=== PATIENT | male | born 1965 | race Caucasian/White ===

== ENCOUNTER → 2016-08-31 | Outpatient (CLI) | payer BC ==
[2016-09-01 14:18] LABS: PSA TOTAL 3.3 ng/mL (0.0-4.0)
== END ==
LOC: M SMT 08:06
PROVIDERS: ATTEND Urology
DX: R97.20 Elevated prostate specific antigen [PSA] (principal)

== ENCOUNTER → 2017-02-28 | Outpatient (CLI) | payer BC | LOC: M SMT 08:03 | PROVIDERS: ATTEND Urology | DX: R97.20 Elevated prostate specific antigen [PSA] (principal) ==

== ENCOUNTER 2017-03-28 05:54 | Day surgery (SDC) | payer BC ==
[~2017-03-28] VITALS: Ht 180.3 cm; Wt 90.7 kg
[~2017-03-28 05:54] MED LIST: BUPR150T3; FLUTISP; GLUC1CAP10 PO; LISI20TA PO; ONETAB32 PO; PRAV40TA2; RANI150C
[2017-03-28] MEDS ORDERED: LIDOCAINE 1% MDV 20ML VIAL SQ PRN (06:00)
[2017-03-28] MEDS ORDERED: LR 1,000 ML IV ONE (06:00)
[2017-03-28] MEDS ORDERED: MIDAZOLAM INJ 2 MG/2 ML VIAL (J2250) As Ordered ONE (07:03)
[2017-03-28] MEDS ORDERED: fentaNYL 100 MCG/2 ML INJECTION (J3010) As Ordered ONE (07:03)
[2017-03-28] MEDS ORDERED: LIDOCAINE 1% SDV INJ 30 ML VIAL As Ordered ONE (07:14)
[2017-03-28] MEDS ORDERED: BUPIVACAINE HCL 0.25% 30 ML VIAL As Ordered ONE (07:14)
[2017-03-28] MEDS ORDERED: LIDOCAINE 2% INJ 100 MG/5 ML SDV (FOR ANES.) As Ordered ONE (07:48)
[2017-03-28] MEDS ORDERED: dexameTHASONE 4 MG/ML 1ML VIAL (J1100) As Ordered ONE (07:48)
[2017-03-28] MEDS ORDERED: KETOROLAC 60 MG/2 ML VIAL (J1885) As Ordered ONE (07:48)
[2017-03-28] MEDS ORDERED: ROCURONIUM BROMIDE 50 MG/5 ML VIAL As Ordered ONE (07:48)
[2017-03-28] MEDS ORDERED: ONDANSETRON 4MG/2ML VIAL (J2405) As Ordered ONE (07:48)
[2017-03-28] MEDS ORDERED: PROPOFOL 200 MG/20 ML VIAL As Ordered ONE (07:48)
[2017-03-28] MEDS ORDERED: HYDROmorphone HCL 2 MG/ML 1ML VIAL (J1170) As Ordered ONE (08:04)
[2017-03-28] MEDS ORDERED: fentaNYL 100 MCG/2 ML INJECTION (J3010) IV PRN (09:45)
[2017-03-28] MEDS ORDERED: METOCLOPRAMIDE INJ 10MG/2ML VIAL (J2765) IV PRN (09:45)
[2017-03-28] MEDS ORDERED: NORCO, ANEXSIA 5/325MG TABLET (HYDROcodone/ACETAMINOPHEN) PO PRN (09:45)
[2017-03-28] MEDS ORDERED: ONDANSETRON 4MG/2ML VIAL (J2405) IV PRN (09:45)
[2017-03-28] MEDS ORDERED: MEPERIDINE INJ 25 MG/ML VIAL (J2175) IV PRN (09:45)
[2017-03-28] MEDS ORDERED: LR 1,000 ML IV SCH (09:45)
[2017-03-28] MEDS ORDERED: PERCOCET 5MG/325MG TAB PO PRN (09:45)
[2017-03-28] MEDS ORDERED: IBUPROFEN 600 MG TAB PO PRN (09:45)
[2017-03-28] MEDS ORDERED: ACETAMINOPHEN TAB 650MG DOSE (2X325MG) PO PRN (09:45)
--- NOTE | 2017-03-28 10:14 | RO ---
DATE OF PROCEDURE: 03/28/2017 PREOPERATIVE DIAGNOSIS: Right inguinal hernia. POSTOPERATIVE DIAGNOSIS: Indirect right inguinal hernia. PROCEDURE PERFORMED: Right inguinal herniorrhaphy with ultra Pro mesh. SURGEON: Dr. Domenic Lubin GEOPHYSICIST: ANESTHESIA: General. INDICATIONS FOR PROCEDURE: The patient is a 52-year-old man who has noticed a moderate reducible incomplete right inguinal hernia. He is now for repair. OPERATIVE PROCEDURE: The patient was placed supine on the operating table and was placed under general endotracheal anesthesia. The patient's lower abdomen, groins and genitalia were prepped and draped in a sterile fashion. An approximately 10 cm oblique right lower quadrant incision was placed over the area of the inguinal canal. The incision was deepened through the subcutaneous tissues. Hemostasis was ensured with the cautery. The external oblique was exposed and then opened in the direction of its fibers into the external ring. The spermatic cord was quite dilated. The cord was skeletonized and he was found to have a moderately large protrusion of preperitoneal fat at the lateral aspect of the internal ring. There was an indirect inguinal hernia sac which contained a large amount of fibrofatty tissue in its wall as well. The hernia sac was excised and the neck was closed with a running locking suture of #0 Vicryl. The preperitoneal fat was transected with care to ensure hemostasis using the cautery. This tissue was all sent together as hernia sac plus preperitoneal fat. The internal ring was somewhat dilated and two #0 Ethibond sutures were placed at the medial aspect to narrow the internal ring somewhat. A 6 x 11 cm piece of ultra Pro mesh was selected. This was trimmed to fit the inguinal floor. I would note that the there was a nerve identified at the medial edge of the internal ring extending medially and this was elevated and preserved. The mesh was placed over the inguinal floor. It was sutured at the pubic tubercle with a #3-0 Prolene which was carried along the edge of the mesh suturing this to the shelving edge of the inguinal ligament. Medially, the mesh was tacked down to the underlying tissues with interrupted simple sutures of #3-0 Vicryl. The tails of the mesh were overlapped lateral to the cord and sutured together. This gave a nice repair of the inguinal floor. Approximately 10 mL of 0.25% Marcaine were infiltrated into the inguinal floor at about the spermatic cord. The external oblique was closed with a running suture of #0 Vicryl. The subcutaneous tissues were closed with chromic and the skin edges were approximated with a running subcuticular #4-0 Vicryl. Approximately 10 mL of 0.25% Marcaine were infiltrated along the skin edges. Steri-Strips were applied followed by a light dressing. The patient tolerated the procedure well without apparent complication. He was awakened in the operating room, extubated and moved to the recovery room in stable condition.
[2017-03-28 11:05] VITALS: BP 112/68
--- NOTE | 2017-03-28 11:27 | ECGEPIP ---
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 No prior ECG available for comparison at the time of interpretation. Electronically Signed On 03-28-2017 11:26:56 EST by Pete Ordaz
== END 2017-03-28 12:10 | disposition home or self-care (01) ==
LOC: M SDC 05:54
PROVIDERS: ATTEND Surgery
DX: K40.90 Unilateral inguinal hernia, without obstruction or gangrene, not specified as recurrent (principal); I10 Essential (primary) hypertension; E78.00 Pure hypercholesterolemia, unspecified; F41.9 Anxiety disorder, unspecified; F32.9 Major depressive disorder, single episode, unspecified; K21.9 Gastro-esophageal reflux disease without esophagitis; R97.20 Elevated prostate specific antigen [PSA]; Z79.899 Other long term (current) drug therapy
CPT/HCPCS: 49505; 88302; 93005; C1781; J1100; J1170; J1885; J2250; J2405; J3010

== ENCOUNTER → 2017-09-04 | Outpatient (CLI) | payer BC ==
[2017-09-04 20:15] LABS: PROSTATIC SPECIFIC AG MONITOR 4.18 NG/ML (< 4.0)
== END ==
LOC: M WUC 17:52
DX: R97.20 Elevated prostate specific antigen [PSA] (principal)

== ENCOUNTER 2018-01-03 10:48 | Day surgery (SDC) | payer BC ==
[2018-01-03] MEDS: NS 1,000 ML IV (11:00)
== END 2018-01-03 12:34 | disposition home or self-care (01) ==
LOC: M OPP 12:34
DX: Z12.11 Encounter for screening for malignant neoplasm of colon (principal); Z80.0 Family history of malignant neoplasm of digestive organs; Z86.010 Personal history of colon polyps; K64.0 First degree hemorrhoids; I10 Essential (primary) hypertension; E78.5 Hyperlipidemia, unspecified; K21.9 Gastro-esophageal reflux disease without esophagitis; R12 Heartburn; F32.9 Major depressive disorder, single episode, unspecified; R06.83 Snoring; N40.1 Benign prostatic hyperplasia with lower urinary tract symptoms; Z79.899 Other long term (current) drug therapy
CPT/HCPCS: G0105

== ENCOUNTER → 2018-03-05 | Outpatient (CLI) | payer BC ==
[2018-03-05 13:24] LABS: PROSTATIC SPECIFIC AG MONITOR 3.7 NG/ML (< 4.0)
== END ==
LOC: M SMT 10:25
DX: R97.20 Elevated prostate specific antigen [PSA] (principal)
CPT/HCPCS: 84153

== ENCOUNTER → 2018-03-28 | Outpatient (REF) | payer BC | LOC: M LAB REF 09:07 | DX: L72.0 Epidermal cyst (principal); L72.3 Sebaceous cyst | CPT/HCPCS: 88304 ==

== ENCOUNTER 2018-05-30 22:25 | Emergency (ER) | payer BC ==
[~2018-05-30] VITALS: Ht 180.3 cm; Wt 90.9 kg
[2018-05-30] MEDS ORDERED: MORPHINE 4 MG/ML 1ML VIAL/SYRINGE (J2270) IM ONE (23:15)
[2018-05-30] MEDS ORDERED: PERC5TAB12 PO (23:49)
[2018-05-31] MEDS ORDERED: OXYCODONE/APAP 5MG/325MG(BULK FOR ED) 1 TABLET PO ONE
[2018-05-31 00:32] VITALS: BP 145/84
--- NOTE | 2018-05-31 07:38 | REP ---
Right knee five views: The patella is high-riding and there is a calcification inferior to the patella anterior to the humeral tuberosities of uncertain significance, possibly an a avulsion from the lower pole of the patella, suggestive of patellar tendon tear and retraction, possibly an old injury. No other fracture is identified. There is no evidence of effusion or hemarthrosis. Mineralization is normal. Joint spaces are unremarkable. Impression: Question patellar tendon tear and avulsion of the inferior pole of the patella, possibly an old injury. Electronically Signed by Floyd Rojo MD 05/31/2018 07:30 A
== END 2018-05-31 00:35 | disposition home or self-care (01) ==
LOC: M ED 22:25
DX: S83.004A Unspecified dislocation of right patella, initial encounter (principal); S86.811A Strain of other muscle(s) and tendon(s) at lower leg level, right leg, initial encounter; X50.1XXA Overexertion from prolonged static or awkward postures, initial encounter; Y92.89 Other specified places as the place of occurrence of the external cause; Y93.67 Activity, basketball; I10 Essential (primary) hypertension; E78.00 Pure hypercholesterolemia, unspecified; Z87.828 Personal history of other (healed) physical injury and trauma; Z79.899 Other long term (current) drug therapy
CPT/HCPCS: 73564; 96372; 99284; J2270

== ENCOUNTER → 2018-05-31 | Outpatient (CLI) | payer BC ==
[~2018-05-31] MED LIST changes: +PERC5TAB12 PO
[2018-05-31 12:46] LABS: BLOOD UREA NITROGEN 17 MG/DL (7-18); CALCIUM LEVEL 9.1 MG/DL (8.5-10.1); CARBON DIOXIDE LEVEL 26 MEQ/L (21-32); CHLORIDE LEVEL 105 MEQ/L (98-107); CREATININE FOR GFR 0.99 MG/DL (0.70-1.30); GLOMERULAR FILTRATION RATE > 60.0 (>56); GLUCOSE, FASTING 88 MG/DL (70-100); POTASSIUM SERUM 4.1 MEQ/L (3.5-5.1); SODIUM LEVEL 140 MEQ/L (136-145)
--- NOTE | 2018-05-31 14:04 | ECGEPIP ---
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
== END ==
LOC: M LAB 11:40
PROVIDERS: ATTEND Orthopaedic Surgery
DX: Z01.812 Encounter for preprocedural laboratory examination (principal); I10 Essential (primary) hypertension; Z79.899 Other long term (current) drug therapy

== ENCOUNTER → 2018-09-11 | Outpatient (CLI) | payer BC | LOC: M WUC 17:20 | PROVIDERS: ATTEND Nurse Practitioner Women's Health | DX: R97.20 Elevated prostate specific antigen [PSA] (principal) ==

== ENCOUNTER → 2019-03-16 | Outpatient (CLI) | payer BC ==
[~2019-03-16] MED LIST changes: -LISI20TA PO; +LISI20TA19 PO
== END ==
LOC: M WUC 16:05
PROVIDERS: ATTEND Nurse Practitioner Women's Health
DX: R97.20 Elevated prostate specific antigen [PSA] (principal)

== ENCOUNTER → 2019-09-19 | Outpatient (CLI) | payer BC | LOC: M WUC 14:39 | PROVIDERS: ATTEND Nurse Practitioner Women's Health | DX: R97.20 Elevated prostate specific antigen [PSA] (principal) ==

== ENCOUNTER → 2020-03-13 | Outpatient (CLI) | payer BC ==
[~2020-03-13] MED LIST changes: -LISI20TA19 PO; +LISI20TA35 PO
== END ==
LOC: M LAB 12:09
PROVIDERS: ATTEND Nurse Practitioner Women's Health
DX: R97.20 Elevated prostate specific antigen [PSA] (principal)

== ENCOUNTER → 2020-09-15 | Outpatient (CLI) | payer BC ==
[~2020-09-15] MED LIST changes: +BUPR150T12; -BUPR150T3
== END ==
LOC: M WUC 08:42
PROVIDERS: ATTEND Nurse Practitioner Women's Health
DX: R97.20 Elevated prostate specific antigen [PSA] (principal)

== ENCOUNTER → 2021-03-16 | Outpatient (CLI) | payer BC | LOC: M WUC 08:38 | PROVIDERS: ATTEND Nurse Practitioner Women's Health | DX: R97.20 Elevated prostate specific antigen [PSA] (principal) ==

== ENCOUNTER → 2021-09-23 | Outpatient (REF) | payer BC | LOC: M LABWUC 15:22 → M LABDRWCV 15:22 | PROVIDERS: ATTEND Nurse Practitioner Women's Health | DX: R97.20 Elevated prostate specific antigen [PSA] (principal) ==

== ENCOUNTER → 2022-03-23 | Outpatient (CLI) | payer BC | LOC: M WUC 09:07 | PROVIDERS: ATTEND Nurse Practitioner Women's Health | DX: R97.20 Elevated prostate specific antigen [PSA] (principal) ==

== ENCOUNTER → 2022-04-27 | Outpatient (CLI) | payer BC ==
[~2022-04-27] MED LIST changes: +ATOR1TAB19 PO; +BETI0.5S OU; -BUPR150T12; +BUPR150T12 PO; +CETI-24 PO; +FAMO1TAB11 PO; +XALA0.007 AD
== END ==
LOC: M LABSMTC 11:12
PROVIDERS: ATTEND Anesthesiology
DX: Z01.818 Encounter for other preprocedural examination (principal); Z11.52 Encounter for screening for COVID-19

== ENCOUNTER 2022-05-02 07:27 | Day surgery (SDC) | payer BC ==
[~2022-05-02] VITALS: Ht 180.3 cm; Wt 98.5 kg
[~2022-05-02 07:27] MED LIST changes: +ceFAZolin SOD 2 GM in IV 1 EA IV ONE
[2022-05-02] MEDS ORDERED: LR 1,000 ML IV SCH ×2 (07:35→10:35)
[2022-05-02] MEDS ORDERED: BUPIVACAINE HCL 0.25% 10ML VIAL As Ordered ONE (09:16)
[2022-05-02] MEDS ORDERED: BUPIVACAINE/EPIN 0.25% 30ML VIAL As Ordered ONE (09:16)
[2022-05-02] MEDS ORDERED: BUPIVACAINE LIPOSOME/PF 1.3% 20ML VIAL (13.3MG/ML)(EXPAREL) As Ordered ONE (09:16)
[2022-05-02] MEDS ORDERED: LIDOCAINE 2% 100MG/5ML SDV (FOR ANES.) As Ordered ONE (09:38)
[2022-05-02] MEDS ORDERED: propofoL 200 MG/20 ML VIAL As Ordered ONE (09:38)
[2022-05-02] MEDS ORDERED: KETOROLAC 60MG 2ML VIAL As Ordered ONE (09:38)
[2022-05-02] MEDS ORDERED: ROCURONIUM BROMIDE 50MG/5ML VIAL As Ordered ONE (09:38)
[2022-05-02] MEDS ORDERED: fentaNYL 250 MCG/5 ML INJECTION As Ordered ONE (09:38)
[2022-05-02] MEDS ORDERED: SUGAMMADEX SODIUM 500 MG/5 ML VIAL (BRIDION) As Ordered ONE (09:38)
[2022-05-02] MEDS ORDERED: ONDANSETRON 4MG 2ML VIAL As Ordered ONE (09:38)
[2022-05-02] MEDS ORDERED: MIDAZOLAM INJ 2MG/2ML VIAL As Ordered ONE (09:38)
[2022-05-02] MEDS ORDERED: NS 1,000 ML IV SCH (10:25)
[2022-05-02] MEDS ORDERED: PERCOCET 5MG/325MG TAB PO PRN ×2 (10:30)
[2022-05-02] MEDS ORDERED: ONDANSETRON 4MG 2ML VIAL IV PRN (10:35)
[2022-05-02] MEDS ORDERED: oxyCODONE 5MG TAB PO PRN (10:35)
[2022-05-02] MEDS ORDERED: HYDROMORPHONE HCL 0.5 MG/ 0.5 ML SYRINGE IV PRN (10:35)
[2022-05-02] MEDS ORDERED: fentaNYL 100 MCG/2 ML INJECTION IV PRN (10:35)
[2022-05-02 12:15] VITALS: BP 144/82
== END 2022-05-02 12:21 | disposition home or self-care (01) ==
LOC: M SDC 07:27
PROVIDERS: ATTEND Surgery
DX: K42.9 Umbilical hernia without obstruction or gangrene (principal); I10 Essential (primary) hypertension; E78.00 Pure hypercholesterolemia, unspecified; R12 Heartburn; M54.2 Cervicalgia; F32.A Depression, unspecified; R97.20 Elevated prostate specific antigen [PSA]; Z87.891 Personal history of nicotine dependence; Z79.899 Other long term (current) drug therapy
CPT/HCPCS: 49591; 88302; C9290; J0690; J1100; J1885; J2250; J2405; J3010; S0020

== ENCOUNTER → 2022-09-21 | Outpatient (CLI) | payer BC ==
[~2022-09-21] MED LIST changes: -BETI0.5S OU; +FLUT50SP17; -FLUTISP; +TIMO5DRO4 OU; -ceFAZolin SOD 2 GM in IV 1 EA IV ONE
== END ==
LOC: M WUC 09:18
PROVIDERS: ATTEND Nurse Practitioner Women's Health
DX: R97.20 Elevated prostate specific antigen [PSA] (principal)

== ENCOUNTER → 2022-09-28 | Outpatient (REF) | payer BC ==
[2022-09-28 18:18] LABS: APPEARANCE, URINE HAZY (CLEAR); BACTERIA, URINE AUTO NEGATIVE (NEGATIVE); BILIRUBIN, URINE AUTO NEGATIVE (NEGATIVE); BLOOD, URINE BLOOD NEGATIVE (NEGATIVE); COLOR, URINE YELLOW (YELLOW); GLUCOSE, URINE (UA) AUTO NEGATIVE (NEGATIVE); KETONE, URINE AUTO NEGATIVE (NEGATIVE); LEUKOCYTE ESTERASE, URINE AUTO NEGATIVE (NEGATIVE); NITRITE, URINE AUTO NEGATIVE (NEGATIVE); PROTEIN, URINE AUTO NEGATIVE (NEGATIVE); RBC, URINE AUTO 0 /HPF (0-3); SPECIFIC GRAVITY URINE AUTO 1.017 (1.002-1.035); SQUAMOUS EPITHELIAL CELL UR AU 0 /HPF (0-6); UROBILINOGEN, URINE AUTO 0.2 mg/dL (0.0-2.0); WBC, URINE AUTO 0 /HPF (0-3)
== END ==
LOC: M SMT 17:48
PROVIDERS: ATTEND Physician Assistant
DX: R97.20 Elevated prostate specific antigen [PSA] (principal); Z87.898 Personal history of other specified conditions

== ENCOUNTER 2023-02-15 06:59 | Day surgery (SDC) | payer BC ==
[~2023-02-15] VITALS: Ht 180.3 cm; Wt 98.4 kg
[~2023-02-15 06:59] MED LIST changes: +NS 1,000 ML IV ONE; -XALA0.007 AD; +XALA0.007 OU
[2023-02-15] MEDS ORDERED: propofoL 200 MG/20 ML VIAL As Ordered ONE (07:22)
[2023-02-15] MEDS ORDERED: LIDOCAINE 2% 100MG/5ML SDV (FOR ANES.) As Ordered ONE (07:22)
[2023-02-15 08:25] VITALS: TEMP 97.1
[2023-02-15 08:49] VITALS: BP 127/76; O2SAT 98
== END 2023-02-15 09:03 | disposition home or self-care (01) ==
LOC: M OPP 06:59
PROVIDERS: ATTEND Surgery
DX: Z12.11 Encounter for screening for malignant neoplasm of colon (principal); D12.5 Benign neoplasm of sigmoid colon; D12.3 Benign neoplasm of transverse colon; K57.30 Diverticulosis of large intestine without perforation or abscess without bleeding; Z86.010 Personal history of colon polyps; I10 Essential (primary) hypertension; E78.00 Pure hypercholesterolemia, unspecified; Z79.899 Other long term (current) drug therapy; K21.9 Gastro-esophageal reflux disease without esophagitis; Z80.0 Family history of malignant neoplasm of digestive organs

== ENCOUNTER → 2023-03-01 | Outpatient (REF) | payer BC ==
[~2023-03-01] MED LIST changes: -NS 1,000 ML IV ONE
[2023-03-03 04:07] LABS: LDL DIRECT 114 mg/dL (0-99)
== END ==
LOC: M LAB REF 16:31
PROVIDERS: ATTEND Family Medicine
DX: E78.00 Pure hypercholesterolemia, unspecified (principal)

== ENCOUNTER → 2023-07-07 | Outpatient (REF) | payer BC ==
[~2023-07-07] MED LIST changes: -FLUT50SP17; +FLUTISP
== END ==
LOC: M LAB REF 11:31
PROVIDERS: ATTEND Family Medicine
DX: K76.0 Fatty (change of) liver, not elsewhere classified (principal)

== ENCOUNTER → 2023-07-11 | Outpatient (REF) | payer BC | LOC: M LAB REF 16:35 | PROVIDERS: ATTEND Family Medicine | DX: R74.8 Abnormal levels of other serum enzymes (principal) ==

== ENCOUNTER → 2023-09-25 | Outpatient (REF) | payer BC | LOC: M LABWUC 18:08 | PROVIDERS: ATTEND Physician Assistant | DX: R97.20 Elevated prostate specific antigen [PSA] (principal) ==

== ENCOUNTER 2024-03-09 18:54 | Emergency (ER) | payer BC ==
[~2024-03-09] VITALS: Ht 180.3 cm; Wt 99.0 kg
[2024-03-09] MEDS: MORPHINE 4 MG/ML 1ML VIAL IV ONE (19:55)
[2024-03-09 20:27] LABS: BASO % 0.3 % (0.0-1.0); EOS # 0.1 10^3/uL (0.0-0.5); EOS % 1.4 % (0.0-3.0); HEMATOCRIT 46.6 % (42.0-52.0); HEMOGLOBIN 15.6 g/dl (13.5-17.5); LYMPH # 1.7 10^3/uL (1.5-5.0); LYMPH % 25.7 % (24.0-44.0); MEAN CORPUSCULAR HEMOGLOBIN 30.5 pg (27.0-33.0); MEAN CORPUSCULAR HGB CONC 33.5 g/dl (32.0-36.5); MONO # 0.5 10^3/uL (0.0-0.8); MONO % 8.2 % (2.0-8.0); NEUTROPHILS # 4.1 10^3/uL (1.5-8.5); NEUTROPHILS % 64.1 % (36.0-66.0); PLATELET COUNT, AUTOMATED 265 10^3/uL (150-450); RED BLOOD COUNT 5.12 10^6/uL (4.30-6.10); WHITE BLOOD COUNT 6.5 10^3/uL (4.0-10.0)
[2024-03-09 20:40] LABS: INR 0.91; PARTIAL THROMBOPLASTIN TIME 23.4 SECONDS (24.8-34.2); PROTHROMBIN TIME 12.5 SECONDS (12.5-14.5)
[2024-03-09 21:00] LABS: LIPASE 45 U/L (12-53)
[2024-03-09 21:02] LABS: ALBUMIN 4.3 G/DL (3.2-5.2); ALKALINE PHOSPHATASE 58 U/L (40-129); ALT/SGPT 72 U/L (7.0-40); AST/SGOT 36 U/L (<34); BILIRUBIN,DIRECT < 0.1 MG/DL (<0.4); BILIRUBIN,TOTAL 0.3 MG/DL (0.3-1.2); BLOOD UREA NITROGEN 17 MG/DL (9-23); CALCIUM LEVEL 10.1 MG/DL (8.3-10.6); CARBON DIOXIDE LEVEL 24 MMOL/L (20-31); CHLORIDE LEVEL 106 MMOL/L (98-107); GLOMERULAR FILTRATION RATE > 60.0 (>49); GLUCOSE, FASTING 105 MG/DL (74-106); POTASSIUM SERUM 4.4 MMOL/L (3.5-5.1); SODIUM LEVEL 139 MMOL/L (136-145); TOTAL PROTEIN 7.2 G/DL (5.7-8.2)
[2024-03-09] MEDS ORDERED: ISOVUE-370 76% 100ML VIAL As Ordered ONE (21:23)
[2024-03-09 23:17] VITALS: BP 146/93; TEMP 98.3; O2SAT 95
[2024-03-12] MEDS ORDERED: BACI1TAB20 PO (10:41)
[2024-03-12] MEDS ORDERED: LEVO75TAB PO (10:41)
[2024-03-12] MEDS ORDERED: TAMS1CAP17 PO (11:33)
== END 2024-03-09 23:33 | disposition home or self-care (01) ==
LOC: M ED 18:54
DX: R33.9 Retention of urine, unspecified (principal); R31.9 Hematuria, unspecified; I10 Essential (primary) hypertension; E78.5 Hyperlipidemia, unspecified; K21.9 Gastro-esophageal reflux disease without esophagitis; N40.0 Benign prostatic hyperplasia without lower urinary tract symptoms; F32.A Depression, unspecified; Z87.891 Personal history of nicotine dependence; Z79.899 Other long term (current) drug therapy
CPT/HCPCS: 51700; 74177; 80048; 80076; 81000; 81015; 83690; 85025; 85610; 85730; 86850; 86900; 86901; 87086; 93041; 96374; 99285; Q9967

== ENCOUNTER 2024-03-10 11:37 | Emergency (ER) | payer BC ==
[~2024-03-10] VITALS: Ht 180.3 cm; Wt 98.3 kg
[2024-03-10 14:52] VITALS: BP 127/79; TEMP 97.9; O2SAT 95
[2024-03-12] MEDS ORDERED: BACI1TAB20 PO (10:41)
[2024-03-12] MEDS ORDERED: LEVO75TAB PO (10:41)
[2024-03-12] MEDS ORDERED: TAMS1CAP17 PO (11:33)
== END 2024-03-10 14:59 | disposition home or self-care (01) ==
LOC: M ED 11:37
DX: R33.9 Retention of urine, unspecified (principal); T83.091A Other mechanical complication of indwelling urethral catheter, initial encounter; I10 Essential (primary) hypertension; J45.909 Unspecified asthma, uncomplicated; K21.9 Gastro-esophageal reflux disease without esophagitis; N40.0 Benign prostatic hyperplasia without lower urinary tract symptoms; Z79.810 Long term (current) use of selective estrogen receptor modulators (SERMs); Z79.899 Other long term (current) drug therapy

== ENCOUNTER → 2024-04-05 | Outpatient (CLI) | payer BC ==
[~2024-04-05] MED LIST changes: +BACI1TAB20 PO; +LEVO75TAB PO; +TAMS1CAP17 PO
== END ==
LOC: M WUC 13:58
PROVIDERS: ATTEND Physician Assistant
DX: R97.20 Elevated prostate specific antigen [PSA] (principal)

== ENCOUNTER → 2024-04-27 | Outpatient (CLI) | payer BC ==
[2024-04-27 14:28] LABS: HEMOGLOBIN 15.4 g/dl (13.5-17.5); MEAN CORPUSCULAR HEMOGLOBIN 30.3 pg (27.0-33.0); MEAN CORPUSCULAR HGB CONC 33.5 g/dl (32.0-36.5); MEAN CORPUSCULAR VOLUME 90.6 fl (80.0-96.0); PLATELET COUNT, AUTOMATED 225 10^3/uL (150-450); RED BLOOD COUNT 5.08 10^6/uL (4.30-6.10); WHITE BLOOD COUNT 5.6 10^3/uL (4.0-10.0)
[2024-04-27 14:34] LABS: APPEARANCE, URINE HAZY (CLEAR); BACTERIA, URINE AUTO 1+ (NEGATIVE); BILIRUBIN, URINE AUTO NEGATIVE (NEGATIVE); BLOOD, URINE BLOOD 1+ (NEGATIVE); COLOR, URINE YELLOW (YELLOW); GLUCOSE, URINE (UA) AUTO NEGATIVE (NEGATIVE); KETONE, URINE AUTO NEGATIVE (NEGATIVE); LEUKOCYTE ESTERASE, URINE AUTO 1+ (NEGATIVE); MUCUS, URINE SMALL (NEGATIVE); NITRITE, URINE AUTO NEGATIVE (NEGATIVE); PROTEIN, URINE AUTO 1+ mg/dL (NEGATIVE); RBC, URINE AUTO 6 /HPF (0-3); SPECIFIC GRAVITY URINE AUTO 1.016 (1.002-1.035); SQUAMOUS EPITHELIAL CELL UR AU 0 /HPF (0-6); UROBILINOGEN, URINE AUTO 0.2 mg/dL (0.0-2.0); WBC, URINE AUTO 13 /HPF (0-3)
[2024-04-27 14:45] LABS: INR 0.89; PROTHROMBIN TIME 12.4 SECONDS (12.5-14.5)
[2024-04-27 14:55] LABS: ALBUMIN 4.1 G/DL (3.2-5.2); ALKALINE PHOSPHATASE 57 U/L (40-129); ALT/SGPT 90 U/L (7.0-40); AST/SGOT 46 U/L (<34); BILIRUBIN,TOTAL 0.4 MG/DL (0.3-1.2); BLOOD UREA NITROGEN 14 MG/DL (9-23); CALCIUM LEVEL 9.9 MG/DL (8.3-10.6); CARBON DIOXIDE LEVEL 28 MMOL/L (20-31); CHLORIDE LEVEL 102 MMOL/L (98-107); CREATININE FOR GFR 0.92 MG/DL (0.70-1.30); GLOMERULAR FILTRATION RATE > 60.0 (>49); GLUCOSE, FASTING 93 MG/DL (74-106); POTASSIUM SERUM 3.7 MMOL/L (3.5-5.1); SODIUM LEVEL 139 MMOL/L (136-145); TOTAL PROTEIN 7.1 G/DL (5.7-8.2)
== END ==
LOC: M RAD 13:44
PROVIDERS: ATTEND Urology
DX: Z01.818 Encounter for other preprocedural examination (principal); R31.0 Gross hematuria

== ENCOUNTER → 2024-05-06 | Day surgery (SDC) | payer BC ==
[~2024-05-06] VITALS: Ht 180.3 cm; Wt 97.0 kg
[~2024-05-06] MED LIST changes: +ACETAMINOPHEN 1000MG/100ML IV BAG As Ordered ONE; +LIDOCAINE 2% 100MG/5ML SDV (FOR ANES.) As Ordered ONE; +MACR100C43 PO; +MEPERIDINE 25 MG/ML 1ML VIAL IV PRN; +METOCLOPRAMIDE INJ 10MG/2ML VIAL IV PRN; +MIDAZOLAM INJ 2MG/2ML VIAL As Ordered ONE; +ONDANSETRON 4MG 2ML VIAL As Ordered ONE; +ONDANSETRON 4MG 2ML VIAL IV PRN; +OXYB5TAB14 PO; +PYRI1TAB5 PO; +ROCURONIUM BROMIDE 50MG/5ML VIAL As Ordered ONE; +SUGAMMADEX SODIUM 500 MG/5 ML VIAL (BRIDION) As Ordered ONE; +diphenhydrAMINE 50MG/ML VIAL IV PRN; +fentaNYL 100 MCG/2 ML INJECTION As Ordered ONE; +oxyCODONE 5MG TAB PO PRN; +propofoL 200 MG/20 ML VIAL As Ordered ONE
[2024-05-06] MEDS: ceFAZolin SOD 2 GM in IV 1 EA IV ONE (08:30)
[2024-05-06] MEDS: MITOMYCIN 40MG IN 40ML SWFI SYRINGE INTRAVESIC ONE (08:30)
[2024-05-06] MEDS: oxyBUTYnin 5 MG TAB PO ONE (10:48)
[2024-05-06] MEDS: fentaNYL 100 MCG/2 ML INJECTION IV PRN (11:19)
[2024-05-06 13:13] VITALS: BP 139/82; TEMP 97.3; O2SAT 97
== END | disposition home or self-care (01) ==
LOC: M SDC 06:07
PROVIDERS: ATTEND Urology
DX: N32.89 Other specified disorders of bladder (principal); N40.0 Benign prostatic hyperplasia without lower urinary tract symptoms; R97.20 Elevated prostate specific antigen [PSA]; I10 Essential (primary) hypertension; E78.00 Pure hypercholesterolemia, unspecified; K21.9 Gastro-esophageal reflux disease without esophagitis; Z79.899 Other long term (current) drug therapy; Z86.0100 Personal history of colon polyps, unspecified; Z87.891 Personal history of nicotine dependence
CPT/HCPCS: 52240; 88307; J0131; J0690; J1100; J2250; J2405; J3010

== ENCOUNTER → 2024-06-10 | Outpatient (REF) | payer BC ==
[~2024-06-10] MED LIST changes: -ACETAMINOPHEN 1000MG/100ML IV BAG As Ordered ONE; -LIDOCAINE 2% 100MG/5ML SDV (FOR ANES.) As Ordered ONE; -MEPERIDINE 25 MG/ML 1ML VIAL IV PRN; -METOCLOPRAMIDE INJ 10MG/2ML VIAL IV PRN; -MIDAZOLAM INJ 2MG/2ML VIAL As Ordered ONE; -ONDANSETRON 4MG 2ML VIAL As Ordered ONE; -ONDANSETRON 4MG 2ML VIAL IV PRN; -ROCURONIUM BROMIDE 50MG/5ML VIAL As Ordered ONE; -SUGAMMADEX SODIUM 500 MG/5 ML VIAL (BRIDION) As Ordered ONE; -diphenhydrAMINE 50MG/ML VIAL IV PRN; -fentaNYL 100 MCG/2 ML INJECTION As Ordered ONE; -oxyCODONE 5MG TAB PO PRN; -propofoL 200 MG/20 ML VIAL As Ordered ONE
[2024-06-10 13:55] LABS: APPEARANCE, URINE CLOUDY (CLEAR); BACTERIA, URINE AUTO 1+ (NEGATIVE); BILIRUBIN, URINE AUTO NEGATIVE (NEGATIVE); BLOOD, URINE BLOOD 2+ (NEGATIVE); COLOR, URINE YELLOW (YELLOW); GLUCOSE, URINE (UA) AUTO NEGATIVE (NEGATIVE); KETONE, URINE AUTO NEGATIVE (NEGATIVE); LEUKOCYTE ESTERASE, URINE AUTO 2+ (NEGATIVE); MUCUS, URINE LARGE (NEGATIVE); NITRITE, URINE AUTO NEGATIVE (NEGATIVE); PROTEIN, URINE AUTO 3+ mg/dL (NEGATIVE); RBC, URINE AUTO TNTC /HPF (0-3); SPECIFIC GRAVITY URINE AUTO 1.017 (1.002-1.035); SQUAMOUS EPITHELIAL CELL UR AU 0 /HPF (0-6); UROBILINOGEN, URINE AUTO 0.2 mg/dL (0.0-2.0); WBC, URINE AUTO 113 /HPF (0-3)
== END ==
LOC: M SMT 12:37
PROVIDERS: ATTEND Urology
DX: N40.0 Benign prostatic hyperplasia without lower urinary tract symptoms (principal)

== ENCOUNTER → 2025-04-08 | Outpatient (CLI) | payer BC ==
[~2025-04-08] MED LIST changes: -PRAV40TA2; +PRAV40TA85
[2025-04-09 10:53] LABS: PSA % FREE 20.0 % (calc) (>25); PSA FREE 0.3 ng/mL; PSA TOTAL 1.5 ng/mL (< OR = 4.0)
== END ==
LOC: M WUC 09:50
PROVIDERS: ATTEND Urology
DX: Z87.440 Personal history of urinary (tract) infections (principal)